=== PATIENT | male | born 1955 | race Two or more races ===

== ENCOUNTER → 2019-11-26 | Outpatient (CLI) | payer MEDICARE, OTHER | END | disposition home or self-care (01) | LOC: PETCFH 13:47 | PROVIDERS: ATTEND Internal Medicine Hematology & Oncology | DX: C15.5 Malignant neoplasm of lower third of esophagus (principal) | CPT/HCPCS: 78815; A9552 ==

== ENCOUNTER 2019-11-27 09:02 | Day surgery (SDC) | payer MEDICARE, OTHER ==
[~2019-11-27] VITALS: Ht 188 cm; Wt 127.5 kg
[2019-11-27] MEDS ORDERED: CEFAZOLIN PMX 1GM/50ML 50 ML ONE (09:22)
[2019-11-27] MEDS ORDERED: CEFAZOLIN 1,000 MG in SODIUM CHLORIDE 0.9% 50 ML IV ONE (09:30)
[2019-11-27 09:42] VITALS: BP 112/61
[2019-11-27] MEDS ORDERED: LIDOCAINE 1%, 20ML ONE ×2 (10:22→11:36)
[2019-11-27] MEDS ORDERED: CEFAZOLIN PMX 1GM/50ML 50 ML IV ONE (10:30)
[2019-11-27] MEDS ORDERED: FENTANYL PF 100 MCG/2ML ONE (10:56)
[2019-11-27] MEDS ORDERED: FLUMAZENIL 0.1 MG/1 ML, 5ML ONE (10:57)
[2019-11-27] MEDS ORDERED: NALOXONE 1 MG/ML, 2ML ONE (10:57)
[2019-11-27] MEDS ORDERED: MIDAZOLAM 1 MG/ML, 5ML ONE (10:57)
== END 2019-11-27 12:58 | disposition home or self-care (01) ==
LOC: RAD 09:02 → OUT 12:58
PROVIDERS: ATTEND Internal Medicine Hematology & Oncology
DX: C15.5 Malignant neoplasm of lower third of esophagus (principal); I48.91 Unspecified atrial fibrillation; I10 Essential (primary) hypertension; G47.30 Sleep apnea, unspecified; E66.9 Obesity, unspecified; Z79.01 Long term (current) use of anticoagulants; Z79.891 Long term (current) use of opiate analgesic; Z79.899 Other long term (current) drug therapy; Z98.890 Other specified postprocedural states; Z80.0 Family history of malignant neoplasm of digestive organs
CPT/HCPCS: 36561; 76937; 77001; 99156; 99157; C1788; J0690; J1642; J2250; J3010; J2310

== ENCOUNTER 2019-12-02 09:53 | Outpatient (CLI) | payer MEDICARE, OTHER ==
[~2019-12-02 09:53] MED LIST: AMLO1CAP42 PO; ENAL20TA68 PO; INDA2.5T PO
[2019-12-08] MEDS ORDERED: APIX5TAB PO (09:38)
[2019-12-08] MEDS ORDERED: METO50TA82 PO (09:38)
[2019-12-08] MEDS ORDERED: AMLO-150 PO (09:38)
== END 2019-12-02 23:59 | disposition home or self-care (01) ==
LOC: MERGE 09:53 → ROC 09:53
PROVIDERS: ATTEND Radiology Radiation Oncology
DX: Z08 Encounter for follow-up examination after completed treatment for malignant neoplasm (principal); C15.5 Malignant neoplasm of lower third of esophagus; I10 Essential (primary) hypertension; G47.33 Obstructive sleep apnea (adult) (pediatric); I48.91 Unspecified atrial fibrillation; E66.9 Obesity, unspecified; Z79.01 Long term (current) use of anticoagulants; Z79.891 Long term (current) use of opiate analgesic
CPT/HCPCS: G0463

== ENCOUNTER 2019-12-09 13:01 | Day surgery (SDC) | payer MEDICARE, OTHER ==
[~2019-12-09] VITALS: Ht 188 cm; Wt 121.8 kg
[~2019-12-09 13:01] MED LIST changes: +AMLO-150 PO; +APIX5TAB PO; +BUPIVACAINE/PF-EPI 0.5% 1:200K ONE; +METO50TA82 PO
[2019-12-09] MEDS ORDERED: LACTATED RINGERS 1,000 ML IV SCH ×2 (13:21→16:40)
[2019-12-09 13:23] VITALS: BP 97/76
[2019-12-09] MEDS ORDERED: CHLORHEXIDINE 15 ML UDC ONE (13:29)
[2019-12-09] MEDS ORDERED: CHLORHEXIDINE 15 ML UDC MM ONE (13:30)
[2019-12-09] MEDS ORDERED: MIDAZOLAM 1 MG/ML, 2ML ONE ×2 (15:41→17:08)
[2019-12-09] MEDS ORDERED: FENTANYL PF 100 MCG/2ML ONE ×4 (15:41→17:08)
[2019-12-09] MEDS ORDERED: ROCURONIUM 10MG/ML,5ML ONE (15:42)
[2019-12-09] MEDS ORDERED: SUCCINYLCHOLINE 20 MG/ML, 10ML ONE (15:42)
[2019-12-09] MEDS ORDERED: DEXAMETHASONE 4 MG/ML, 1ML ONE (15:42)
[2019-12-09] MEDS ORDERED: PROPOFOL 10 MG/ML, 20ML ONE (15:42)
[2019-12-09] MEDS ORDERED: ONDANSETRON 2MG/ML, 2ML ONE (15:42)
[2019-12-09] MEDS ORDERED: CEFAZOLIN 1,000 MG ONE ×2 (15:43→15:52)
[2019-12-09] MEDS ORDERED: SUGAMMADEX 200 MG/2 ML IVPush ONE (16:26)
[2019-12-09] MEDS ORDERED: HYDROmorphone 1 MG/ML, 1ML INJ IVPush PRN (16:30)
[2019-12-09] MEDS ORDERED: ONDANSETRON 2MG/ML, 2ML IVPush PRN ×2 (16:30→17:00)
[2019-12-09] MEDS ORDERED: DIPHENHYDRAMINE 50 MG/ML, 1ML IVPush PRN (16:30)
[2019-12-09] MEDS ORDERED: OXYcodone 5 MG/5 ML ORAL.SOL UDC PO PRN (16:30)
[2019-12-09] MEDS ORDERED: MEPERIDINE/PF 25MG/0.5ML IVPush PRN (16:30)
[2019-12-09] MEDS ORDERED: PROMETHAZINE 25 MG/ML, 1ML IVPush PRN (16:30)
[2019-12-09] MEDS ORDERED: EPHEDRINE 50 MG/ML, 1ML IVPush PRN (16:30)
[2019-12-09] MEDS ORDERED: LABETALOL 5MG/ML, 20ML IV PRN (16:30)
[2019-12-09] MEDS ORDERED: ALBUTEROL SULFATE 2.5 MG/3 ML NPPB PRN (16:30)
[2019-12-09] MEDS ORDERED: hydrALAzine 20 MG/ML, 1ML IV PRN (16:30)
[2019-12-09] MEDS ORDERED: ACETAMINOPHEN 325 MG TABLET PO PRN (16:30)
[2019-12-09] MEDS ORDERED: DIAZEPAM 5 MG/ML, 2ML IVPush PRN (16:30)
[2019-12-09] MEDS ORDERED: MIDAZOLAM 1 MG/ML, 2ML IV PRN (16:30)
[2019-12-09] MEDS ORDERED: PROMETHAZINE 12.5 MG SUPP PR PRN (16:30)
[2019-12-09] MEDS ORDERED: OXYcodone 5 MG/5 ML ORAL.SOL UDC ONE (16:48)
[2019-12-09] MEDS: FENTANYL PF 100 MCG/2ML IV PRN ×3 (16:50→17:11)
[2019-12-09] MEDS ORDERED: MEPERIDINE/PF 25MG/ML,1ML ONE (16:55)
[2019-12-09] MEDS ORDERED: HYDROcodone/APAP 7.5-325MG/15ML UDC PO PRN ×2 (17:00)
[2019-12-09] MEDS ORDERED: morphine SULFATE 10 MG/ML, 1ML IVPush PRN (17:00)
[2019-12-09] MEDS ORDERED: MORPHINE SULFATE 4 MG/ML, 1ML ONE (17:30)
== END 2019-12-09 18:45 | disposition home or self-care (01) ==
LOC: OUT 13:01
PROVIDERS: ATTEND Thoracic Surgery (Cardiothoracic Vascular Surgery)
DX: C15.5 Malignant neoplasm of lower third of esophagus (principal); C77.2 Secondary and unspecified malignant neoplasm of intra-abdominal lymph nodes; C78.7 Secondary malignant neoplasm of liver and intrahepatic bile duct; K82.8 Other specified diseases of gallbladder; I10 Essential (primary) hypertension; G47.33 Obstructive sleep apnea (adult) (pediatric); I48.91 Unspecified atrial fibrillation; Z79.01 Long term (current) use of anticoagulants; Z79.82 Long term (current) use of aspirin; Z79.899 Other long term (current) drug therapy; Z98.890 Other specified postprocedural states; Z80.0 Family history of malignant neoplasm of digestive organs; Z82.49 Family history of ischemic heart disease and other diseases of the circulatory system
CPT/HCPCS: 44186; 47379; 88305; 88307; 88313; 93005; B4087; J0330; J0690; J1100; J2175; J2250; J2270; J2405; J2704; J3010; J7120

== ENCOUNTER 2020-01-11 07:53 | Outpatient (CLI) | payer MEDICARE, OTHER ==
[~2020-01-11 07:53] MED LIST changes: -BUPIVACAINE/PF-EPI 0.5% 1:200K ONE
== END 2020-01-11 23:59 | disposition home or self-care (01) ==
LOC: ROC 07:53
PROVIDERS: ATTEND Radiology Radiation Oncology
DX: C15.5 Malignant neoplasm of lower third of esophagus (principal)
CPT/HCPCS: G0463; G2012

== ENCOUNTER 2020-02-23 13:11 | Emergency (ER) | payer MEDICARE, OTHER ==
[~2020-02-23] VITALS: Ht 188 cm; Wt 110.0 kg
--- NOTE | 2020-02-23 14:24 | NUR ---
PATIENT TO ROOM AT THIS TIME VIA WHEELCHAIR.
--- NOTE | 2020-02-23 15:00 | NUR ---
DR. Justice at bedside, exam complete will complete orders
[2020-02-23] MEDS ORDERED: MORPHINE SULFATE 4 MG/ML, 1ML ONE ×2 (15:03→16:29)
[2020-02-23] MEDS ORDERED: SODIUM CHLORIDE 0.9% 1,000 ML IV ONE (15:04)
[2020-02-23] MEDS ORDERED: ONDANSETRON 2MG/ML, 2ML ONE (15:14)
[2020-02-23] MEDS ORDERED: ONDANSETRON 2MG/ML, 2ML IVPush ONE (15:30)
[2020-02-23] MEDS ORDERED: SODIUM CHLORIDE FLUSH 10ML SYR IVF ONE (15:30)
[2020-02-23] MEDS: MORPHINE SULFATE 4 MG/ML, 1ML IVPush PRN ×2 (15:31→16:31)
--- NOTE | 2020-02-23 15:33 | NUR ---
port accessed using sterile technique, medicated as ordered
[2020-02-23 15:42] LABS: ALBUMIN 2.3 g/dL (3.4-5.0); ANION GAP 5 mmol/L (5-15); CALCIUM 9.5 mg/dL (8.5-10.1); CHLORIDE 102 mmol/L (98-107)
[2020-02-23 15:45] LABS: ALANINE AMINOTRANSFERASE 19 U/L (12-78); ALKALINE PHOSPHATASE 114 U/L (45-117); BILIRUBIN,TOTAL 1.2 mg/dL (0.2-1.0); CREATININE 0.93 mg/dL (0.7-1.3); TOTAL PROTEIN 6.6 g/dL (6.4-8.2)
[2020-02-23 16:27] LABS: MEAN CORPUSCULAR HEMOGLOBIN 28.1 pg (27.5-34.5); MEAN CORPUSCULAR HGB CONC 31.8 g/dL (33.2-36.2); MEAN CORPUSCULAR VOLUME 88.3 fL (81-97); MEAN PLATELET VOLUME 7.8 fL (7.4-10.4); PLATELET COUNT 249 x10^3/uL (130-400); RED BLOOD COUNT 4.68 x10^6/uL (4.38-5.82); RED CELL DISTRIBUTION WIDTH 18.3 % (9.4-14.8)
[2020-02-23] MEDS ORDERED: OMNIPAQUE 350 MG/ML, 100ML BOTTLE ONE (16:28)
[2020-02-23 16:30] LABS: MD YES
[2020-02-23 16:35] LABS: BAND#(MANUAL) 0.22 x10^3/uL; BANDS%(MANUAL) 5 % (0-7); BASOS#(MANUAL) 0.13 x10^3/uL (0-0.1); BASOS% (MANUAL) 3 % (0-1); EOS#(MANUAL) 0.04 x10^3/uL (0.0-0.4); EOS% (MANUAL) 1 % (1-7); LYMPH#(MANUAL) 0.44 x10^3/uL (1-3.4); LYMPHS% (MANUAL) 10 % (22-44); METAMYELOCYTES# (MANUAL) 0.09 x10^3/uL (0-0); METAMYELOCYTES% (MANUAL) 2 % (0-1); MONOS#(MANUAL) 2.77 x10^3/uL (0.3-2.7); MONOS% (MANUAL) 63 % (2-9); MYELOCYTES# (MANUAL) 0.04 x10^3/uL (0-0); MYELOCYTES% (MANUAL) 1 % (0-0); NRBC % (MANUAL) 1 % (0-1); SEG#(MANUAL) 0.66 x10^3/uL (1.8-6.8); SEGS% (MANUAL) 15 % (42-75)
[2020-02-23 16:36] LABS: ANISOCYTOSIS 1+; OVALOCYTES 1+; POLYCHROMASIA 1+
[2020-02-23 16:37] LABS: <PLATELET ESTIMATE> ADEQUATE; LARGE PLATELETS 1+
--- NOTE | 2020-02-23 16:54 | NUR ---
Provider to bedside. to consult IR to re-thread j tube
[2020-02-23] MEDS ORDERED: VISIPAQUE 270 MG/ML, 50ML BOTTLE ONE (17:43)
[2020-02-23 17:57] VITALS: BP 120/83
--- NOTE | 2020-02-23 18:40 | NUR ---
D/c order acknowledged- sports book writer feels unsafe for patient to wait in lobby. called to come pick patient up
--- NOTE | 2020-02-23 19:06 | NUR ---
flushed with 3ml of 100/1 heparin prior to port de-access
--- NOTE | 2020-02-23 19:07 | NUR ---
Reviewed sxs to watch for (pain with tube feeds), redness/belly tenderness, nausea advised that night feeds maybe too dangerous (patient pulled out j tube rolling around as feeds were infusing)
== END 2020-02-23 19:10 | disposition home or self-care (01) ==
LOC: ED 14:34
DX: K94.23 Gastrostomy malfunction (principal); Z85.01 Personal history of malignant neoplasm of esophagus
CPT/HCPCS: 36415; 49450; 74177; 75984; 80053; 83605; 83690; 83735; 84100; 85025; 87040; 96361; 96374; 96375; 96376; 99285; C1729; C1769; J2270; J2405; J7030; Q9966; Q9967

== ENCOUNTER → 2020-03-07 | Outpatient (CLI) | payer MEDICARE, OTHER ==
[~2020-03-07] MED LIST changes: +OMNIPAQUE 350 MG/ML, 100ML BOTTLE ONE
== END | disposition home or self-care (01) ==
LOC: CFH 10:24
PROVIDERS: ATTEND Internal Medicine Hematology & Oncology
DX: C15.5 Malignant neoplasm of lower third of esophagus (principal); K31.89 Other diseases of stomach and duodenum
CPT/HCPCS: 71260; 74160; Q9967

== ENCOUNTER 2020-04-24 17:09 | Emergency (ER) | payer MEDICARE, OTHER ==
[~2020-04-24] VITALS: Ht 188 cm; Wt 103.6 kg
[~2020-04-24 17:09] MED LIST changes: +ERTA1VIA4 IV; +HYDR-3237 PO; -OMNIPAQUE 350 MG/ML, 100ML BOTTLE ONE
[2020-04-24] MEDS ORDERED: DIPH,PERTUSS(ACELL),TET VAC/PF 0.5 ML IM-VACC ONE ×2 (17:42→18:00)
[2020-04-24] MEDS ORDERED: LIDOCAINE-MPF 2% ,5ML ONE ×2 (17:42→17:56)
[2020-04-24] MEDS ORDERED: LIDOCAINE 2%, 20ML SQ ONE (18:00)
[2020-04-24] MEDS ORDERED: BUPIVACAINE 0.25% ONE ×2 (18:06)
[2020-04-24] MEDS ORDERED: OXYcodone/APAP 5/325MG TABLET ONE (18:23)
[2020-04-24] MEDS ORDERED: BUPIVACAINE 0.25% INFIL ONE (18:30)
[2020-04-24] MEDS ORDERED: OXYcodone/APAP 5/325MG TABLET PO ONE (18:30)
[2020-04-24] MEDS ORDERED: HYDROmorphone 1 MG/ML, 1ML INJ ONE (18:49)
[2020-04-24] MEDS ORDERED: HYDROmorphone 1 MG/ML, 1ML INJ IM ONE (19:00)
--- NOTE | 2020-04-24 19:01 | NUR ---
PT UNABLE TO SWALLOW PAIN PILL. ORDER RECEIVED FROM MADELAINE GUZMAN FOR IM SHOT OF PAIN MED
[2020-04-24 20:22] VITALS: BP 117/81
--- NOTE | 2020-04-24 20:23 | NUR ---
New tegaderm applied to wound vac with akua instructions from surgical floor RN. Pressure on wound vac maintaining baseline level. Pt states entire dressing/vac is getting changed in the AM. Pt states he does not want this RN to change tubing immediately prior to full vac change in AM. D/c instructions and f/u care discussed with pt and . Verbalize understanding. Also verbalize understanding r/t return to ED with any issues with wound vac over night prior to appt tomorrow. Ambulatory out of ED independently, steady gait
== END 2020-04-24 20:24 | disposition home or self-care (01) ==
LOC: ED 17:51
DX: S51.812A Laceration without foreign body of left forearm, initial encounter (principal); S61.211A Laceration without foreign body of left index finger without damage to nail, initial encounter; R20.2 Paresthesia of skin; Z85.01 Personal history of malignant neoplasm of esophagus; W45.8XXA Other foreign body or object entering through skin, initial encounter; Y93.89 Activity, other specified; Y92.009 Unspecified place in unspecified non-institutional (private) residence as the place of occurrence of the external cause; Y99.8 Other external cause status
CPT/HCPCS: 12002; 12032; 73090; 73130; 90471; 90715; 96372; 99285; J1170

== ENCOUNTER → 2020-08-05 | Outpatient (CLI) | payer MEDICARE, OTHER ==
[~2020-08-05] MED LIST changes: +OMNIPAQUE 350 MG/ML, 100ML BOTTLE ONE
== END | disposition home or self-care (01) ==
LOC: CFH 10:40
PROVIDERS: ATTEND Internal Medicine Hematology & Oncology
DX: C15.5 Malignant neoplasm of lower third of esophagus (principal)
CPT/HCPCS: 71260; 74177; Q9967

== ENCOUNTER → 2020-10-28 | Outpatient (CLI) | payer MEDICARE, OTHER | END | disposition home or self-care (01) | LOC: CFH 12:50 | PROVIDERS: ATTEND Internal Medicine Hematology & Oncology | DX: Z51.11 Encounter for antineoplastic chemotherapy (principal); Z45.2 Encounter for adjustment and management of vascular access device; C15.5 Malignant neoplasm of lower third of esophagus; C78.7 Secondary malignant neoplasm of liver and intrahepatic bile duct; I10 Essential (primary) hypertension; G89.3 Neoplasm related pain (acute) (chronic); I48.91 Unspecified atrial fibrillation; R10.9 Unspecified abdominal pain; R53.83 Other fatigue; K76.89 Other specified diseases of liver; Z79.899 Other long term (current) drug therapy; Z93.4 Other artificial openings of gastrointestinal tract status | CPT/HCPCS: 71260; 74177; Q9967 ==

== ENCOUNTER → 2020-11-09 | Outpatient (CLI) | payer MEDICARE, OTHER ==
[~2020-11-09] MED LIST changes: -OMNIPAQUE 350 MG/ML, 100ML BOTTLE ONE
== END | disposition home or self-care (01) ==
LOC: PETCFH 08:42
PROVIDERS: ATTEND Internal Medicine Hematology & Oncology
DX: C78.00 Secondary malignant neoplasm of unspecified lung (principal); C15.5 Malignant neoplasm of lower third of esophagus
CPT/HCPCS: 78815; A9552

== ENCOUNTER 2020-11-29 07:21 | Emergency (ER) | payer MEDICARE, OTHER ==
[~2020-11-29] VITALS: Ht 190.5 cm; Wt 84.6 kg
--- NOTE | 2020-11-29 07:52 | NUR ---
PT J-TUBE BECAME DISLODGED, IS HERE FOR REPLACEMENT. PT ALSO C/O PAIN WITH URINATION AND "I JUST FEEL MORE WORSE THAN USUAL" ER TIFFANIE WHEATLEY & DR GUPTA UPDATED RE: UTI SYMPTOMS.
[2020-11-29] MEDS ORDERED: SODIUM CHLORIDE 0.9% 1,000ML IVBOLUS ONE (08:00)
[2020-11-29 08:08] LABS: MEAN CORPUSCULAR HEMOGLOBIN 29.3 pg (27.5-34.5); MEAN PLATELET VOLUME 9.8 fL (7.4-10.4); PLATELET COUNT 100 x10^3/uL (130-400); RED CELL DISTRIBUTION WIDTH 15.4 % (9.4-14.8)
[2020-11-29 08:13] LABS: MD YES
[2020-11-29 08:14] LABS: ALBUMIN 3.1 g/dL (3.4-5.0); ANION GAP 6 mmol/L (5-15); CALCIUM 8.9 mg/dL (8.5-10.1); CHLORIDE 105 mmol/L (98-107); CREATININE 0.53 mg/dL (0.7-1.3)
--- NOTE | 2020-11-29 08:15 | NUR ---
PT TO RADIOLOGY WITH TECH TRANSPORT.
[2020-11-29 08:19] LABS: MICROSCOPIC INDICATED
[2020-11-29 08:25] LABS: BAND#(MANUAL) 0.07 x10^3/uL; BANDS%(MANUAL) 4 % (0-7); EOS#(MANUAL) 0.23 x10^3/uL (0.0-0.4); EOS% (MANUAL) 13 % (1-7); LYMPH#(MANUAL) 0.27 x10^3/uL (1-3.4); LYMPHS% (MANUAL) 15 % (22-44); METAMYELOCYTES# (MANUAL) 0.02 x10^3/uL (0-0); METAMYELOCYTES% (MANUAL) 1 % (0-1); MONOS#(MANUAL) 0.05 x10^3/uL (0.3-2.7); MONOS% (MANUAL) 3 % (2-9); SEG#(MANUAL) 1.15 x10^3/uL (1.8-6.8); SEGS% (MANUAL) 64 % (42-75)
[2020-11-29 08:26] LABS: <PLATELET ESTIMATE> DECREASED; <PLT MORPHOLOGY> NORMAL PLT MORPH; ANISOCYTOSIS 1+; PMNS WITH VACUOLES 1+
[2020-11-29] MEDS ORDERED: MIDAZOLAM 1 MG/ML, 5ML ONE ×2 (08:37)
[2020-11-29] MEDS ORDERED: NALOXONE 1 MG/ML, 2ML ONE (08:37)
[2020-11-29] MEDS ORDERED: FENTANYL PF 100 MCG/2ML ONE (08:37)
[2020-11-29] MEDS ORDERED: FLUMAZENIL 0.1 MG/1 ML, 5ML ONE (08:37)
[2020-11-29] MEDS ORDERED: LIDOCAINE 1%, 10ML ONE (08:47)
--- NOTE | 2020-11-29 09:32 | NUR ---
PT RTD FROM RADIOLOGY, VSS, NAD NOTED. INSERTION SITE CDI W/O REDNESS.
[2020-11-29 09:34] VITALS: BP 129/76
--- NOTE | 2020-11-29 09:34 | NUR ---
ALL TESTS RESULTED AND CHART UP FOR RECHECK. PT AWARE
--- NOTE | 2020-11-29 09:35 | NUR ---
RIGHT SUBCLAVIAN INFUSION PORT WAS ACCESSED BY IT TEACHER. DEACCESSED AT THIS TIME, TIP INTACT, HEMOSTASIS OBTAINED W/O DIFFICULTY AND BANDAIDE APPLIED.
== END 2020-11-29 10:38 | disposition home or self-care (01) ==
LOC: ED 08:07
DX: K94.23 Gastrostomy malfunction (principal)
CPT/HCPCS: 36415; 49440; 80048; 81001; 82040; 85025; 87086; 99156; 99157; 99284; C1729; C1751; C1769; J2250; J3010; J3490; 99285; J2310

== ENCOUNTER → 2020-12-06 | Outpatient (CLI) | payer MEDICARE, OTHER | END | disposition home or self-care (01) | LOC: RAD 12:19 | PROVIDERS: ATTEND Internal Medicine Gastroenterology | DX: C15.9 Malignant neoplasm of esophagus, unspecified (principal); Z12.11 Encounter for screening for malignant neoplasm of colon; R63.4 Abnormal weight loss; R19.7 Diarrhea, unspecified; R13.19 Other dysphagia; I10 Essential (primary) hypertension; D37.8 Neoplasm of uncertain behavior of other specified digestive organs; G47.30 Sleep apnea, unspecified; I48.91 Unspecified atrial fibrillation; Z80.0 Family history of malignant neoplasm of digestive organs | CPT/HCPCS: 74220 ==

== ENCOUNTER → 2021-01-23 | Outpatient (CLI) | payer MEDICARE, OTHER ==
[~2021-01-23] MED LIST changes: +OMNIPAQUE 350 MG/ML, 100ML BOTTLE ONE
== END | disposition home or self-care (01) ==
LOC: CFH 14:23
PROVIDERS: ATTEND Internal Medicine Hematology & Oncology
DX: C15.5 Malignant neoplasm of lower third of esophagus (principal); K22.8 Other specified diseases of esophagus; K76.89 Other specified diseases of liver
CPT/HCPCS: 71260; 74177; Q9967